=== PATIENT | male | born 1965 | race African-American/Black ===

== ENCOUNTER 2020-02-10 09:20 | Day surgery (SDC) | payer BC ==
[~2020-02-10] VITALS: Ht 182.9 cm; Wt 86.2 kg
--- NOTE | ~2020-02-10 | OP ---
PATIENT NAME: KAPIL PALOMARES MEDICAL RECORD: [id number] :63 LOCATION:D.OPS ADMISSION DATE: SURGEON: ORI DINH MD DATE OF OPERATION: 02/10/2020 PREOPERATIVE DIAGNOSES: Thrombosed left radiocephalic AV fistula and painful complications associated with peritoneal dialysis catheter, end-stage renal disease and dependence on renal dialysis. POSTOPERATIVE DIAGNOSIS: Thrombosed left radiocephalic AV fistula and painful complications associated with peritoneal dialysis catheter, end-stage renal disease and dependence on renal dialysis. OPERATION PERFORMED: 1. Creation of left brachiocephalic arteriovenous fistula. 2. Removal of PD catheter. SURGEON: Ori Dinh MD ANESTHESIA: General per STERLING and Dr. Riojas. REFERRING PHYSICIAN: Dr. Barry. PREOPERATIVE NOTE: This gentleman had a peritoneal catheter implanted laparoscopically and a right wrist radiocephalic arteriovenous fistula created 1 month ago. He had not kept any postoperative appointments in my office, and at some point in the last month, his fistula had apparently thrombosed and he has complained of pain with instillation and drainage of peritoneal fluid and once his peritoneal catheter removed. He is dialyzing at this time with a right internal jugular tunneled dialysis catheter. DESCRIPTION OF PROCEDURE: Under anesthesia in supine position, the patient was prepped and draped in sterile manner. The right arm was examined first with ultrasound and there was no flow in the radiocephalic fistula and the fistula does not appear to be at all salvageable. He did have adequate veins, cephalic and basilic at the elbow and I elected to go ahead with a brachiocephalic fistula. A transverse incision was made in the median cubital vein or veins exposed and the anatomy was such that I actually anastomosed the brachial artery to the median cubital vein which drained towards the basilic vein, but ligated that vein proximal to the anastomosis, so that all the fistula flow was directed initially distally to the confluence of the median cubital veins and then proximally through the median cubital vein to the cephalic vein. The veins and artery were mobilized and occluded then as needed with doubly looped Silastic tapes. The vein and artery were opened with an 11 blade and flushed proximally and distally with heparinized saline and gently explored with a 2.5 mm coronary artery dilator with no obstructions found. I attempted to disrupt valves in the proximal median antebrachial vein with the dilator. The anastomosis was then done with running 7-0 Prolene. When completed and the occluding loops were released, excellent flow was established in the new fistula. The veins were treated intermittently throughout with topical papaverine. The wound was irrigated with saline, infiltrated with 0.25% Marcaine without epinephrine and closed with interrupted inverted 3-0 Vicryl and running intracuticular 4-0 Stratafix. It sealed with Dermabond glue and dressed with Maxorb Ag, Tegaderm, OPERATIVE REPORT [id number] KAPIL PALOMARES and Cavilon skin prep. The patient was then reprepped and draped. I reopened the transverse incision to the right of the subumbilical area and exposed the catheter and dissected it down to the anterior rectus sheath. I removed the pursestring suture of Vicryl, which was still recognizable and with a little electrocautery and some blunt dissection freed the deep Dacron felt cuff and removed the catheter from the rectus sheath and peritoneum. I repaired the fascial defect there with a single [id number] 2-0 Vicryl suture. With blunt dissection, I was able then to free the superficial cuff and the entire catheter was then removed. The wound was irrigated with saline, infiltrated with 0.25% Marcaine without epinephrine and closed with interrupted inverted 3-0 Vicryl and running intracuticular 4-0 Stratafix, Dermabond glue and dressed with Maxorb Ag, Tegaderm, and Cavilon skin prep. The patient then was awakened and taken to the recovery room in stable condition. Blood loss was trivial perhaps 5 cc. None was replaced. Sponges, instruments, and needles were accounted for. No drain was used and no surgical specimen was submitted for histopathology. The peritoneal catheter was discarded. PLAN: He should be able to go home today and return to see me in my office in the next 1-2 weeks. He should leave the initial operative dressings intact until that time. He should use ice off and on to the abdominal wound and to the arm p.r.n. for pain or discomfort and to diminish bruising and swelling. Hopefully, he will be able to start dialysis with a fistula in about a month or 6 weeks and soon thereafter have his tunneled dialysis catheter removed. He is strongly encouraged to keep his postop appointments to see me this time. TRANSINT:[id number] Voice Confirmation ID: [id number] DOCUMENT ID: [id number] cc: ORI Mejia MD CC: ATUL GAUTAM MD and SAI BARRY DO [id number] DICTATION DATE: 02/10/201626 MINES INSPECTOR: 02/11/20 0116 [facility] 02/10/20 [place] [id number] [place] [id number]
[2020-02-10 10:47] LABS: ANION GAP 9.6 mmol/L (8-16); CALCIUM 8.4 mg/dL (8.5-10.1); CARBON DIOXIDE 31.3 mmol/L (21.0-32.0); CREATININE - SERUM 8.7 mg/dL (0.6-1.3); POTASSIUM - SERUM 3.9 mmol/L (3.5-5.1)
[2020-02-10 10:51] LABS: BASOPHILS 0.2 % (0-2); EOSINOPHILS 6.2 % (0-7); HEMATOCRIT 33.1 % (42.0-54.0); HEMOGLOBIN 11.2 g/dL (13.5-17.5); IMMATURE GRANULOCYTES 0.3 % (0-5); LYMPHOCYTES 45.4 % (15-50); MCH 29.8 pg (26.0-34.0); MCHC 33.8 g/dL (31.0-37.0); MONOCYTES 8.6 % (2-11); NEUTROPHILS 39.3 % (40-80); PLATELET COUNT 209 10x3/uL (130-400); RBC 3.76 10x6/uL (4.20-6.10); RDW 12.4 % (11.5-14.5); WBC 6.2 10x3/uL (4.8-10.8)
[2020-02-10 10:55] VITALS: BP 127/66; Ht 182.9 cm; Wt 86.2 kg
[2020-02-10 10:59] LABS: INR 0.96 (0.85-1.17); PROTIME 12.8 SECONDS (11.6-15.0)
[2020-02-10] MEDS ORDERED: BASAGLAR K100 UNIT/1 SC (11:39)
[2020-02-10] MEDS ORDERED: METOPROLOL TART50 MG PO (11:40)
[2020-02-10] MEDS ORDERED: MIRALAX17 GM PO (11:40)
[2020-02-10] MEDS ORDERED: PHOSLO667 MG PO (11:41)
[2020-02-10] MEDS ORDERED: BISACODYL5 MG PO (11:41)
[2020-02-10] MEDS ORDERED: NORVASC5 MG PO (11:42)
[2020-02-10] MEDS ORDERED: GLIMEPIRIDE4 MG PO (11:42)
[2020-02-10] MEDS ORDERED: ULTRAM50 MG PO (16:11)
== END 2020-02-10 17:15 | disposition home or self-care (01) ==
LOC: D.OPS 09:20
PROVIDERS: ATTEND Surgery
DX: T82.868A Thrombosis due to vascular prosthetic devices, implants and grafts, initial encounter (principal); I12.0 Hypertensive chronic kidney disease with stage 5 chronic kidney disease or end stage renal disease; E11.22 Type 2 diabetes mellitus with diabetic chronic kidney disease; N18.6 End stage renal disease; Z99.2 Dependence on renal dialysis